=== PATIENT | female | born 1955 | race Caucasian/White ===

== ENCOUNTER → 2021-04-10 15:30 | Outpatient (CLI) | payer OTHER, SELFPAY ==
--- NOTE | 2021-04-10 15:34 | DI.MRI.S_ITS ---
PROCEDURE: MR HEAD/BRAIN WO CON INDICATIONS: unspecified visual distubance TECHNIQUE: Non-contrast axial T1 spin echo, axial T2 fast spin echo, sagittal and axial FLAIR, coronal T2 fast spin echo, axial gradient echo, axial diffusion and ADC through the brain. COMPARISON: None. FINDINGS: Image quality: Excellent. CSF spaces: Ventricles appear symmetric in size and shape. Basal cisterns are patent. No extra-axial fluid collections. Brain: No intracranial bleeds or mass effects. There is cerebral volume loss for age. There are periventricular and deep white matter chronic small vessel ischemic changes. Brainstem appears normal. Diffusion-weighted images show no acute ischemic insults. No chronic ischemic insults. Normal intravascular flow voids are present. Skull and face: Calvarial bone marrow is normal in signal. Orbits are normal. Sinuses: Sinuses and mastoids are clear. IMPRESSION: Mild microvascular atherosclerotic change in the deep white matter of each hemisphere, expected for age, but no evidence of mass or stroke, or intracranial hemorrhage or trauma is found. Dictated by: Reed Carlos M.D. on 04/10/2021 at 16:26 Approved by: Reed Carlos M.D. on 04/10/2021 at 16:27
== END ==
PROVIDERS: Referring Provider Nurse Practitioner Family; Visit Provider Nurse Practitioner Family
DX: H53.9 Unspecified visual disturbance (principal)
CPT/HCPCS: 70551

== ENCOUNTER → 2021-05-24 12:16 | Outpatient (CLI) | payer OTHER, SELFPAY ==
--- NOTE | 2021-05-24 | DI.MRI.S_ITS ---
PROCEDURE: MR LUMBAR SPINE WO CON INDICATIONS: Fusion of spine, lumbar region TECHNIQUE: Noncontrast sagittal T1 spin echo and T2 fast echo, sagittal STIR, axial T1 and T2 fast spin echo through the lumbar spine. In cases with scoliosis, additional coronal T2 fast spin echo may be performed. COMPARISON: None. FINDINGS: Image quality: Excellent. Alignment and Curvature: No plain films are available for comparison, for numbering purposes. Thus, for the purposes of this examination, 5 lumbar type vertebral bodies will be presumed, as denoted on the montage panel. This should be confirmed and correlated with plain films, prior to any lumbar spinal intervention. Mild grade 1 anterolisthesis of L4 on L5 is present. Bone Marrow: Marrow is of normal overall signal. No acute vertebral body compression fractures. Posterior fusion of L4-S1 has been performed. Mild reactive signal within the endplates adjacent to the T12-L1, L1-L2, L2-L3, and L3-L4 intervertebral discs. Spinal Cord: Conus medullaris terminates at the T12-L1 disc space level. Visualized cord demonstrates normal signal and size. Paraspinous Soft Tissues: No paravertebral masses. T12-L1: Mild disc height loss and desiccation. Mild diffuse disc bulge. Mild canal stenosis. Mild bilateral foraminal stenosis. L1-L2: Mild disc height loss and desiccation. Mild diffuse disc bulge. Mild facet and ligamentum flavum hypertrophy. Mild canal stenosis. Mild bilateral foraminal stenosis. L2-L3: Mild disc height loss and desiccation. Mild diffuse disc bulge. Mild facet and ligamentum flavum hypertrophy. Mild epidural lipomatosis. Moderate canal stenosis. Moderate left greater than right foraminal stenosis. L3-L4: Mild disc height loss and desiccation. Mild diffuse disc bulge. Mild facet and ligamentum flavum hypertrophy. Mild epidural lipomatosis. Moderate to severe canal stenosis. Mild to moderate bilateral foraminal stenosis. L4-L5: Status post fusion. Moderate disc desiccation. Mild diffuse disc bulge. Mild bilateral facet hypertrophy. Mild canal stenosis. Moderate bilateral foraminal stenosis. L5-S1: Status post fusion. Mild residual disc bulge. Mild bilateral facet hypertrophy. Mild canal stenosis. Moderate left greater than right foraminal stenosis. IMPRESSION: 1. Multilevel degenerative disc and facet disease, as well as ligamentum flavum hypertrophy and epidural lipomatosis. 2. Multilevel canal stenoses, worst at L3-L4 where there is moderate to severe canal stenosis. Moderate canal stenosis at L2-L3 is present. 3. Multilevel foraminal stenoses, worst at L2-L3, L4-L5, and L5-S1, where there are moderate foraminal stenoses. 4. 5 lumbar type vertebral bodies were presumed for the current report. Plain films of the lumbar spine are recommended for confirmation, prior to any lumbar spinal intervention. Dictated by: Rafa Viveros M.D. on 05/24/2021 at 13:49 Approved by: Rafa Viveros M.D. on 05/24/2021 at 16:11
--- NOTE | 2021-05-24 | DI.MRI.S_ITS ---
PROCEDURE: MR THORACIC SPINE WO CON INDICATIONS: Fusion of spine, lumbar region TECHNIQUE: Noncontrast sagittal T1 spine echo and T2 fast spin echo, sagittal STIR, axial T1 and T2 fast spin echo through the thoracic spine. COMPARISON: [facility], , MR CERVICAL SPINE WO CON, 05/24/2021, 12:37. FINDINGS: Image quality: Excellent. Alignment and Curvature: There is normal bony alignment. Bone Marrow: Marrow is of normal overall signal. No acute vertebral body compression fractures. Schmorl's node are present at the superior endplates of T10 and T11. Partially visualized cervical fusion at C5-6 is present. Spinal Cord: Visualized spinal cord is normal in size and signal. Paraspinous Soft Tissues: No paravertebral masses. Miscellaneous: On axial images, central canal appear widely patent at all scanned levels. Minimal minimal to mild disc bulges/protrusions are present at T4-5, T5-6, T6-7, T7 a, T9-10, T10-11, T11-12, T12-L1. Minimal left foraminal narrowing is present at T5-6, moderate right T10-11, T11-12, mild right T12-L1. IMPRESSION: 1. Multilevel disc bulges/protrusions without spinal stenosis. Multilevel [id number] foraminal narrowing as above. Dictated by: Latrice Watkins M.D. on 05/24/2021 at 16:15 Approved by: Latrice Watkins M.D. on 05/24/2021 at 16:19
--- NOTE | 2021-05-24 | DI.MRI.S_ITS ---
PROCEDURE: MR CERVICAL SPINE WO CON INDICATIONS: Fusion of spine, lumbar region TECHNIQUE: Noncontrast sagittal T1 spin echo and T2 fast spin echo, sagittal STIR, foraminal oblique sagittal T2 fast spin echo, and axial gradient echo or T2 fast spin echo through the cervical spine. COMPARISON: None. FINDINGS: Image quality: Excellent. Alignment and Curvature: There is normal bony alignment. Bones: Postsurgical changes compatible C5-C6 ACDF noted. Benign intraosseous hemangioma is noted in the T1, T2 and T3 vertebral bodies. Minimal reactive endplate changes noted adjacent to the C4-C5, C6-C7 and C7-T1 discs. Spinal Cord: Visualized spinal cord has normal size and signal. No cerebellar tonsillar herniation. Paraspinous Soft Tissues: No paravertebral masses. Prevertebral soft tissues are normal in thickness. C2-C3: Loss of disc signal. Mild, diffuse disc bulge. Mild right and moderate left facet hypertrophy. Mild narrowing of the central canal. Moderate right and severe left neural foraminal narrowing with compression of the exiting left C3 nerve root. C3-C4: Loss of disc signal. Mild, diffuse disc bulge. Mild right and moderate left facet hypertrophy. Mild narrowing of the central canal. Moderate right and severe left neural foraminal narrowing with compression of the exiting left C4 nerve root. C4-C5: Loss of disc signal. Mild, diffuse disc bulge. Small central disc protrusion. Mild right and moderate left facet hypertrophy. Moderate narrowing of the central canal. Moderate right and severe left neural foraminal narrowing with compression of the exiting left C5 nerve root. C5-C6: Status post discectomy and fusion. No central stenosis. Mild bilateral facet hypertrophy. Mild bilateral uncovertebral joint hypertrophy. Severe bilateral neural foraminal narrowing with compression of the exiting C6 nerve roots. C6-C7: Loss of disc signal. Mild, diffuse disc bulge. Mild bilateral facet hypertrophy. Mild bilateral neural foraminal narrowing. No neural compression. C7-T1: Loss of disc signal. No central stenosis. No neural foraminal narrowing. No neural compression. IMPRESSION: 1. C5-C6 ACDF. 2. Multilevel degenerative disc disease. 2. Multilevel facet arthropathy. 3. No severe central canal narrowing. 4. Severe left C2-C3, C3-C4 and C4-C5 neural foraminal narrowing with compression of the exiting left C3, C4 and C5 nerve roots. Severe bilateral C5-C6 neural foraminal narrowing with compression of the exiting bilateral C6 nerve roots. Dictated by: Hafsa Ahumada MD, PhD on 05/24/2021 at 14:32 Approved by: Hafsa Ahumada MD, PhD on 05/24/2021 at 14:39
== END ==
PROVIDERS: Referring Provider Physician Assistant; Visit Provider Physician Assistant
DX: M48.04 Spinal stenosis, thoracic region (principal); M51.24 Other intervertebral disc displacement, thoracic region; M50.31 Other cervical disc degeneration, high cervical region; M47.812 Spondylosis without myelopathy or radiculopathy, cervical region; M48.02 Spinal stenosis, cervical region; M51.36 Other intervertebral disc degeneration, lumbar region; M48.061 Spinal stenosis, lumbar region without neurogenic claudication; M48.07 Spinal stenosis, lumbosacral region; Z98.1 Arthrodesis status
CPT/HCPCS: 72141; 72146; 72148

== ENCOUNTER → 2022-04-26 14:47 | Outpatient (CLI) | payer OTHER, SELFPAY | PROVIDERS: PCP Internal Medicine; Referring Provider Nurse Practitioner Family; Visit Provider Nurse Practitioner Family | DX: M85.80 Other specified disorders of bone density and structure, unspecified site (principal) | CPT/HCPCS: 77080 ==

== ENCOUNTER → 2022-09-21 13:57 | Outpatient (CLI) | payer OTHER, SELFPAY ==
--- NOTE | 2022-09-21 | DI.US.S_ITS ---
PROCEDURE: US SOFT TISSUE HEAD AND NECK COMPARISON: None. INDICATIONS: ENLARGED LYMPH NODES/TOBACCO USE FINDINGS: Several left submandibular normal appearing lymph nodes. Largest measures 1.3 x 0.4 cm. Preserved fatty and normal. Vasculature noted. Normal bilateral submandibular glands. IMPRESSION: Normal appearing left-sided submandibular lymph nodes. Consider follow-up CT neck with contrast clinical concern persists Approved by: Umesh Lee M.D. on 09/21/2022 at 17:47
--- NOTE | 2022-09-21 | DI.CT.S_ITS ---
PROCEDURE: CT CHEST WO CON INDICATIONS: ENLARGED LYMPH NODES/TOBACCO USE TECHNIQUE: Noncontrast 5 mm thick sections acquired from the pulmonary apices to the posterior costophrenic angles. 1 mm lung window, 5 mm thick coronal and sagittal and 7 mm axial MIP reformats were then acquired. For radiation dose reduction, the following was used: automated exposure control, adjustment of mA and/or kV according to patient size. COMPARISON: MR, MR LUMBAR SPINE WO CON, 05/24/2021, 13:12. MR, MR THORACIC SPINE WO CON, 05/24/2021, 12:54. [facility], SOFT TISSUE HEAD AND NECK, 09/21/2022, 14:10. FINDINGS: Image quality: Excellent. Lungs and pleura: No acute air space opacities. No pleural effusions or pneumothorax. Central and peripheral airways are patent and normal in caliber. Mediastinum: Heart size is normal. No pericardial effusion. There is a 1.3 cm subcarinal lymph node. Thoracic aorta and central pulmonary arteries are normal in size. Esophagus is normal in caliber. Small hiatal hernia. Bones and chest wall: No suspicious bony lesions. There is mild chronic central depression in the superior endplate of T10. There is a 1.0 x 1.7 cm right axillary lymph node, demonstrating fatty hilum, most likely reactive. 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 Right thyroid lobe is unremarkable. Abdomen: Visualized upper abdominal solid organs and bowel loops appear normal in the absence of contrast. IMPRESSION: 1. No suspicious pulmonary nodules. ACR Lung rads category 1. Recommend annual screening lung CT in 12 months if clinically indicated. 2. Mildly enlarged subcarinal lymph node measuring 1.3 cm, indeterminate. 3. Left thyroidectomy. Dictated by: Linh Dos Santos M.D. on 09/21/2022 at 15:21 Approved by: Linh Dos Santos M.D. on 09/21/2022 at 15:30
== END ==
PROVIDERS: PCP Internal Medicine; Referring Provider Registered Nurse; Visit Provider Registered Nurse
DX: R59.0 Localized enlarged lymph nodes (principal); E89.0 Postprocedural hypothyroidism; Z72.0 Tobacco use
CPT/HCPCS: 71250; 76536

== ENCOUNTER → 2023-01-08 12:43 | Outpatient (CLI) | payer OTHER, SELFPAY ==
--- NOTE | 2023-01-08 | DI.MRI.S_ITS ---
PROCEDURE: MR HEAD/BRAIN WO CON INDICATIONS: Cervical disc disorder with radiculopathy TECHNIQUE: Non-contrast axial T1 spin echo, axial T2 fast spin echo, sagittal and axial FLAIR, coronal T2 fast spin echo, axial gradient echo, axial diffusion and ADC through the brain. COMPARISON: None. FINDINGS: Image quality: Excellent. CSF spaces: Ventricles appear symmetric in size and shape. Basal cisterns are patent. No extra-axial fluid collections. Brain: No intracranial bleeds or mass effects. There is cerebral volume loss for age. There are periventricular and deep white matter chronic small vessel ischemic changes. Brainstem appears normal. Diffusion-weighted images show no acute ischemic insults. No chronic ischemic insults. Normal intravascular flow voids are present. Skull and face: Calvarial bone marrow is normal in signal. Orbits are normal. Sinuses: Sinuses and mastoids are clear. IMPRESSION: 1. Mild volume loss and small vessel ischemic disease. 2. No acute process. No recent infarct. Dictated by: Rafa Viveros M.D. on 01/08/2023 at 14:22 Transcribed by: BRIAN on 01/08/2023 at 14:23 Approved by: Rafa Viveros M.D. on 01/08/2023 at 16:32
--- NOTE | 2023-01-08 | DI.MRI.S_ITS ---
PROCEDURE: MR CERVICAL SPINE WO CON INDICATIONS: Cervical disc disorder with radiculopathy TECHNIQUE: Noncontrast sagittal T1 spin echo and T2 fast spin echo, sagittal STIR, foraminal oblique sagittal T2 fast spin echo, and axial gradient echo or T2 fast spin echo through the cervical spine. COMPARISON: None. FINDINGS: Image quality: Degraded by motion artifact. Alignment and Curvature: There is loss of normal cervical lordosis. Bone Marrow: Marrow demonstrates normal overall signal. Mild reactive signal throughout the endplates of the cervical and upper thoracic spine. Anterior fusion hardware at C5-C6 is present. Spinal Cord: Visualized spinal cord has normal size and signal. No cerebellar tonsillar herniation. Paraspinous Soft Tissues: No paravertebral masses. Prevertebral soft tissues are normal in thickness. C2-C3: Congenital canal stenosis. Mild disc desiccation and diffuse disc bulge. Mild facet and uncovertebral hypertrophy bilaterally. Moderate canal stenosis. Moderate right and severe left foraminal stenosis. Left C3 nerve root compression. C3-C4: Congenital canal stenosis. Mild disc desiccation and diffuse disc bulge. Moderate facet and uncovertebral hypertrophy bilaterally. Moderate canal stenosis. Severe bilateral foraminal stenosis. Bilateral C4 nerve root compression. C4-C5: Moderate disc desiccation. Mild diffuse disc bulge. Congenital canal stenosis. Mild facet and uncovertebral hypertrophy bilaterally. Moderate canal stenosis. Severe left and moderate right foraminal stenosis. Left C5 nerve root compression. C5-C6: Anterior fusion hardware. Moderate disc height loss and desiccation. Mild diffuse disc bulge. Mild facet and uncovertebral hypertrophy bilaterally. Congenital canal stenosis. Moderate canal stenosis. Moderate bilateral foraminal stenosis. C6-C7: Mild disc desiccation and diffuse disc bulge. Congenital canal stenosis. Mild facet and uncovertebral hypertrophy bilaterally. Mild canal stenosis. Moderate bilateral foraminal stenosis. C7-T1: Congenital canal stenosis. Mild disc height loss and desiccation. Mild diffuse disc bulge. Mild facet and uncovertebral hypertrophy. Mild canal stenosis. Moderate left and mild right foraminal stenosis. IMPRESSION: 1. Diffuse congenital canal stenosis with superimposed disc and facet disease, as well as uncovertebral hypertrophy. 2. Multilevel canal stenoses, worst at C2-C3, C3-C4, C4-C5, and C5-C6, where there are moderate canal stenosis. 3. Multilevel foraminal stenoses, worst at C2-C3, C3-C4, and C4-C5 where there is associated intraforaminal nerve root compression. Recommend correlation with clinical symptoms to ascertain relevance of these findings. 4. Postsurgical sequelae. Dictated by: Rafa Viveros M.D. on 01/08/2023 at 14:23 Transcribed by: BRIAN on 01/08/2023 at 14:29 Approved by: Rafa Viveros M.D. on 01/08/2023 at 16:32
== END ==
PROVIDERS: PCP Internal Medicine; Referring Provider Registered Nurse; Visit Provider Registered Nurse
DX: M50.13 Cervical disc disorder with radiculopathy, cervicothoracic region (principal); M48.02 Spinal stenosis, cervical region; M47.812 Spondylosis without myelopathy or radiculopathy, cervical region; I67.89 Other cerebrovascular disease
CPT/HCPCS: 70551; 72141